=== PATIENT | male | born 1985 | race Caucasian/White ===

== ENCOUNTER 2017-07-19 08:07 | Emergency (ER) | payer BC ==
[2017-07-19 08:30] VITALS: BMI 27.2
--- NOTE | 2017-07-19 09:20 | PDOC ---
History of Present Illness - General Chief Complaint: Pain Stated Complaint: ABD PAIN Time Seen by Provider: 07/19/17 08:55 - History of Present Illness Initial Comments: 07/19/17 09:18 32 yo M with h/o nephrolithiasis who p/w RLQ abdominal pain. Pt. reports 2 days of worsening, sharp, pinching/burning RLQ abdominal ttp. Pain worse with deep inhalation and supine positioning. Reports intermittent dysuria, with intermittent hematuria. Intermittent R testicular pain with no identifiable triggers. Last episode of hematuria 1 week ago. Denies OTC symptom management/relief. Denies F/C, N/V, CP, SOB, abdominal pain, diarrhea, constipation, BPR, urinary complaints, penile pain/lesions/discharge, scrotum pain/bulging, weakness, lightheadedness, sensory changes. PMHx: as noted above. Denies h/o abdominal procedures. ROS: as noted above SHx: 1-2 cigarettes per week. EtoH sobriety for 5 months. Denies IVDA. Currently not sexually active. Denies h/o STI's. Past History - Past Medical History Allergies/Adverse Reactions: Allergies Allergy/AdvReac Type Severity Reaction Status Date / Time No Known Allergies Allergy Verified 07/19/17 08:18 Home Medications: Ambulatory Orders NK [No Known Home Medication] 07/19/17 COPD: No Other medical history: ? kidney problem - Immunization History Immunization Up to Date: Yes - Suicide/Smoking/Psychosocial Hx Smoking History: Current every day smoker Number of Cigarettes Smoked Daily: 1 Information on smoking cessation initiated: No Hx Alcohol Use: No Drug/Substance Use Hx: No Review of Systems - Review of Systems Comments:: 07/19/17 09:19 GENERAL/CONSTITUTIONAL: No fever or chills. No weakness. HEAD, EYES, EARS, NOSE AND THROAT: No change in vision. No ear pain or discharge. No sore throat. CARDIOVASCULAR: No chest pain or shortness of breath RESPIRATORY: No cough, wheezing, or hemoptysis. GASTROINTESTINAL: + RLQ abdominal pain. No nausea, vomiting, diarrhea or constipation. GENITOURINARY: No dysuria, frequency, or change in urination. MUSCULOSKELETAL: No joint or muscle swelling or pain. No neck or back pain. SKIN: No rash NEUROLOGIC: No headache, vertigo, loss of consciousness, or change in strength/ sensation. ENDOCRINE: No increased thirst. No abnormal weight change HEMATOLOGIC/LYMPHATIC: No anemia, easy bleeding, or history of blood clots. ALLERGIC/IMMUNOLOGIC: No hives or skin allergy. *Physical Exam - Vital Signs Last Vital Signs Temp Pulse Resp BP Pulse Ox 98.3 F 70 18 125/73 98 07/19/17 08:18 07/19/17 08:18 07/19/17 08:18 07/19/17 08:18 07/19/17 08:18 - Physical Exam Comments: 07/19/17 09:19 GENERAL: Awake, alert, and fully oriented, in no acute distress HEAD: No signs of trauma, normocephalic, atraumatic EYES: PERRLA, EOMI, sclera anicteric, conjunctiva clear ENT: Hearing grossly normal, nares patent, oropharynx clear without exudates. Moist mucosa NECK: Normal ROM, supple, no lymphadenopathy, JVD, or masses LUNGS: No distress, speaks full sentences, clear to auscultation bilaterally HEART: Regular rate and rhythm, normal S1 and S2, no murmurs, rubs or gallops, peripheral pulses normal and equal bilaterally. ABDOMEN: Soft,RLQ abdominal ttp, NBS. + R sided flank pain. No guarding, no rebound. No masses. : Testicular atrophy. Neg scrotal swelling or ttp. Absent penile lesions/d/c, skin change. Absent inguinal bulging on valsalva. Absent inguinal lymphadenopathy. EXTREMITIES : Normal inspection, Normal range of motion, no edema. No clubbing or cyanosis. SKIN: Warm, Dry, normal turgor, no rashes or lesions noted ED Treatment Course - LABORATORY CBC & Chemistry Diagram: 07/19/17 09:49 07/19/17 09:49 Medical Decision Making - Medical Decision Making 07/19/17 10:20 32 yo M with h/o nephrolithiasis who p/w RLQ abdominal pain. AF, VSS, A&OX3. + RLQ ttp. R/o appendicitis vs. nephrolithaisis. No evidence of inguinal hernia, pyelonephritis, testicular torsion, or other testicular pathology. Will also consider cystitis, colitis. ED Course: CBC,CMP, UA CT AP 07/19/17 12:48 CT AP: Per Radiologist Dr. Gardner Pt. with R sided 1.1 x 0.4 cm Proximal ureter stone. Mild hydronephrosis. 07/19/17 14:25 Patient pain controlled. *DC/Admit/Observation/Transfer Diagnosis at time of Disposition: Urolithiasis Qualifiers: Urinary calculus location: ureter Qualified Code(s): N20.1 - Calculus of ureter - Discharge Dispostion Disposition: HOME Condition at time of disposition: Stable Decision to Admit order: No - Referrals Referrals: David Sidhu MD [Staff Physician] - - Patient Instructions Printed Discharge Instructions: Kidney Stones -- Adult Additional Instructions: Please return to the emergency department with any new or worsening symptoms or concerns. Please follow up with your primary care physician within 72 hours. Please follow up with urology within one week. Can take 400-600mg Ibuprofen every 4 hours and Tylenol every four hours. Strain urine. Print Language: TUNISIAN - Post Discharge Activity Forms/Work/School Notes: Back to Work - Attestations Physician Attestion: 07/19/17 09:19 I attest to the information provided in this note.
--- NOTE | 2017-07-19 09:37 | PDOC ---
Attending Attestation - Resident Resident Name: Yamil Fine - ED Attending Attestation I have performed the following: I have examined & evaluated the patient, The case was reviewed & discussed with the resident, I agree w/resident's findings & plan, Exceptions are as noted - HPI HPI: 07/19/17 09:31 32y M pmhx kidney stones (dx via CT at [facility]) presenst with complaint of RLQ pain x 2-3 days. Pt note the pain is constant but does come in go and is a pinching sensation. it is nonradiating, and no associated n/v, f/c, dysuria, diarrhea, hemelena. Pt notes the pain seems worse when he is lying down but still present when he is walking around. exam: abd soft nontender, mild R inguinal tenderness, no CVA tenderness : no focal tendenress, normal lie, no edema suspect kidney stone, consider possible appyhowever lower suspicion no signs of torsion or testicular lesions - Physicial Exam PE: 07/19/17 09:40 see above - Medical Decision Making 07/19/17 09:41 see above 07/19/17 12:41 ct noted for stone in R ureter pain controlled will dc with uro fu return precautions were discussed
[2017-07-19 09:45] LABS: URINE APPEARANCE CLEAR; URINE BILIRUBIN NEGATIVE (<2.0 mg/dL); URINE COLOR YELLOW; URINE GLUCOSE (UA) NEGATIVE (NEGATIVE); URINE KETONE NEGATIVE (NEGATIVE); URINE LEUK ESTERASE TRACE (NEGATIVE); URINE NITRITE NEGATIVE (NEGATIVE); URINE PROTEIN NEGATIVE (NEGATIVE); URINE UROBILINOGEN NEGATIVE mg/dL (0.2-1.0)
[2017-07-19 09:52] LABS: URINE MUCUS RARE
[2017-07-19 10:09] LABS: BASO % 0.5 % (0-2.0); EOS % 2.2 % (0-4.5); HEMATOCRIT 42.9 % (35.4-49); HEMOGLOBIN 14.5 GM/dL (11.7-16.9); LYMPH % 26.6 % (8-40); MCHC 33.9 g/dl (32.0-35.9); MEAN CELL VOLUME 85.8 fl (80-96); MEAN PLT VOLUME 7.4 fl (7.5-11.1); MONO % 8.4 % (3.8-10.2); NEUT % 62.3 % (42.8-82.8); PLATELET COUNT 220 K/MM3 (134-434); RDW 13.9 % (11.9-15.9); WHITE BLOOD COUNT 5.4 K/mm3 (4.0-10.0)
[2017-07-19 10:31] LABS: ALBUMIN 3.8 g/dl (3.4-5.0); ANION GAP 7 (8-16); BLOOD UREA NITROGEN 9 mg/dL (7-18); CALCIUM 8.7 mg/dL (8.5-10.1); CHLORIDE 109 mmol/L (98-107); CO2 27 mmol/L (21-32); CREATININE 0.8 mg/dL (0.7-1.3); GLUCOSE,RANDOM 97 mg/dL (74-106); POTASSIUM 4.1 mmol/L (3.5-5.1); SGOT/AST 26 U/L (15-37); SGPT/ALT 62 U/L (12-78); SODIUM 143 mmol/L (136-145)
[2017-07-19 10:33] LABS: ALK PHOS 85 U/L (45-117); BILIRUBIN,TOTAL 0.6 mg/dL (0.2-1.0); TOT PROT 7.6 g/dl (6.4-8.2)
[2017-07-19] MEDS ORDERED: KETOROLAC TROMETHAMINE 30 MG/1 ML VIAL IVPUSH ONE (12:01)
[2017-07-19] MEDS ORDERED: SODIUM CHLORIDE 1,000 ML IV STA (12:01)
[2017-07-19] MEDS ORDERED: KETOROLAC TROMETHAMINE 30 MG/1 ML VIAL ONE (12:31)
[2017-07-19 12:56] VITALS: TEMP 98.2
[2017-07-19 14:43] VITALS: BP 107/68; PULSE 72
== END 2017-07-19 14:43 | disposition home or self-care (01) ==
LOC: JER 08:07
PROC: 3E0333Z Introduction of Anti-inflammatory into Peripheral Vein, Percutaneous Approach (ICD-10-PCS; principal; 2017-07-19)
PROC: 3E0337Z Introduction of Electrolytic and Water Balance Substance into Peripheral Vein, Percutaneous Approach (ICD-10-PCS; 2017-07-19)
DX: N20.1 Calculus of ureter (principal); N20.9 Urinary calculus, unspecified; F17.210 Nicotine dependence, cigarettes, uncomplicated
CPT/HCPCS: 36415; 74176; 80053; 81003; 81015; 85025; 99283-25; J7030